=== PATIENT | female | born 1970 ===

== ENCOUNTER 2018-02-18 14:18 | Outpatient (CLI) | payer OTHER | END 2018-02-18 14:29 | disposition home or self-care (01) | LOC: TOM 14:18 | DX: R51 Headache (principal) ==

== ENCOUNTER 2018-05-03 11:21 | Outpatient (CLI) | payer OTHER | END 2018-05-03 11:30 | disposition home or self-care (01) | LOC: MAMO-SONO 11:21 | DX: Z12.31 Encounter for screening mammogram for malignant neoplasm of breast (principal); N60.19 Diffuse cystic mastopathy of unspecified breast ==